=== PATIENT | female | born 1960 | race Hispanic/Latino ===

== ENCOUNTER 2017-04-02 14:07 | Emergency (ER) | payer OTHER ==
[2017-04-02 14:16] VITALS: BMI 21.6
[2017-04-02 14:19] VITALS: BP 150/81; PULSE 56; RESP 16; TEMP 98.2; O2SAT 99
--- NOTE | 2017-04-02 14:31 | ED PDOC ---
Arrival/HPI - General Historian: Patient - General Chief Complaint: Back Pain Time Seen by Provider: 04/02/17 14:26 - History of Present Illness Narrative History of Present Illness (Text): 04/02/17 14:27 56 y/o female, pmh including htn/hypothyroidism/gerd/chronic sciatica/lumbar disc herniation with unknown level, allergic to lidocaine, c/o sciatica pain x 1 day with no fall or trauma. Pt. stated that she is at work today, been standing all day, been having the lower back pain on the right side to the rt. lower extremities, no urinary symptoms, no headache or night sweat, no dizziness , no palpitation, no chest pain or shortness of breath. (Gt Torrez) Past Medical History - Provider Review Nursing Documentation Reviewed: Yes - Infectious Disease Hx of Infectious Diseases: None - Tetanus Immunization Tetanus Immunization: Up to Date - Cardiac Hx Cardiac Disorders: Yes Hx Angina: Yes Hx Hypertension: Yes Other/Comment: HAS AN OCCASIONAL LEAKY HEART VALVE - Pulmonary Hx Respiratory Disorders: No - Neurological Hx Neurological Disorder: No - HEENT Hx HEENT Disorder: No - Renal Hx Renal Disorder: No - Endocrine/Metabolic Hx Endocrine Disorders: Yes Hx Hypothyroidism: Yes - Hematological/Oncological Hx Blood Disorders: No - Integumentary Hx Dermatological Disorder: No - Musculoskeletal/Rheumatological Hx Musculoskeletal Disorders: Yes Hx Back Pain: Yes - Gastrointestinal Hx Gastrointestinal Disorders: Yes Hx Gastroesophageal Reflux: Yes Other/Comment: HAS HEMANGIOMA OF THE LIVER - Genitourinary/Gynecological Hx Genitourinary Disorders: No - Psychiatric Hx Psychophysiologic Disorder: No Hx Substance Use: No - Surgical History Hx Arthroscopy: Yes (X 2 TO RIGHT KNEE) - Anesthesia Hx Anesthesia: Yes Hx Anesthesia Reactions: No Hx Malignant Hyperthermia: No - Suicidal Assessment Feels Threatened In Home Enviroment: No Family/Social History - Physician Review Nursing Documentation Reviewed: Yes Family/Social History: Unknown Family HX Smoking Status: Never Smoked Hx Alcohol Use: No Hx Substance Use: No Hx Substance Use Treatment: No Allergies/Home Meds Allergies/Adverse Reactions: Allergies lidocaine Allergy (Verified 04/02/17 14:16) ANAPHYLAXIS Home Medications: Home Meds Medication Instructions Recorded Confirmed Levothyroxine Sodium 50 mcg PO DAILY 10/23/12 04/02/17 [Levothyroxine] Amlodipine Besylate [Norvasc] 10 mg PO DAILY 12/21/15 04/02/17 Cetirizine HCl [Zyrtec] 10 mg PO DAILY PRN 02/22/16 04/02/17 Omeprazole Magnesium [Prilosec Otc] 40 mg PO DAILY PRN 02/22/16 04/02/17 Lactobacillus Acidophilus 1 cap PO BID 04/02/17 04/02/17 [Acidophilus] Naproxen [Naproxen] 500 mg PO BID 04/02/17 04/02/17 Review of Systems - Review of Systems Constitutional: absent: Fatigue, Fevers Eyes: absent: Vision Changes ENT: absent: Hearing Changes Respiratory: absent: Cough, Sputum Cardiovascular: absent: Chest Pain Gastrointestinal: absent: Abdominal Pain, Nausea, Vomiting Genitourinary Female: absent: Dysuria, Frequency Musculoskeletal: Back Pain, Myalgias. absent: Arthralgias, Neck Pain, Joint Swelling Psychiatric: absent: Anxiety, Depression Physical Exam Vital Signs Reviewed: Yes Temperature: Afebrile Blood Pressure: Normal Pulse: Regular Respiratory Rate: Normal Appearance: Positive for: Well-Appearing, Non-Toxic, Uncomfortable Pain Distress: Severe Mental Status: Positive for: Alert and Oriented X 3 - Systems Exam Head: Present: Atraumatic, Normocephalic Pupils: Present: PERRL Extroacular Muscles: Present: EOMI Conjunctiva: Present: Normal Mouth: Present: Moist Mucous Membranes Neck: Present: Normal Range of Motion Respiratory/Chest: Present: Clear to Auscultation, Good Air Exchange. No: Respiratory Distress, Accessory Muscle Use Cardiovascular: Present: Regular Rate and Rhythm, Normal S1, S2. No: Murmurs Abdomen: Present: Normal Bowel Sounds. No: Tenderness, Distention, Peritoneal Signs Back: Present: Paraspinal Tenderness, Other (LS spine: +ttp and spasm noted on the rt. paraspinal muscle region, no midline tenderness or step off, no rash, no cva tenderness, FROM without limitation, sensation intact, motor 5/5, no saddling gait. ). No: CVA Tenderness, Midline Tenderness, Pain with Leg Raise, Decubitus Ulcer Upper Extremity: Present: Normal Inspection. No: Cyanosis, Edema Lower Extremity: Present: Normal Inspection. No: Edema Neurological: Present: GCS=15, Speech Normal, Motor Func Grossly Intact, Gait Normal, Memory Normal Skin: Present: Warm, Dry, Normal Color. No: Rashes Psychiatric: Present: Alert, Oriented x 3, Normal Insight, Normal Concentration Medical Decision Making - Lab Interpretations I have reviewed the lab results: Yes Interpretation: No clinic. lab abnormalty ED Course and Treatment: 04/02/17 14:33 -toradol/flexeril/percocet -UA show no UTI -Discharge home with cane, percocet for severe pain or just take tylenol and flexeril, avoid taking flexeril and percocet together at the same time as it will causes drowsiness, heat compression, follow up with your own pmd within 2 days, avoid strenuous exercise or activity, return to the ER for any new or worsening signs or symptoms. 04/02/17 15:09 -Pt. feels better with the medication given in the ER. (Gt Torrez) I was available for consultation during PA evaluation. The chart was reviewed by me, and I agree with disposition. The documented history was done by the physician jewel stripper. The documented physical exam was done by the physician jewel stripper. The documented procedures were done by the physician jewel stripper. ( Zeyad Rueda) - Lab Interpretations Lab Results: Lab Results 04/02/17 14:45: Urine Color Yellow, Urine Appearance Clear, Urine pH 6.0, Ur Specific [place] 1.015, Urine Protein Negative, Urine Glucose (UA) Negative, Urine Ketones Negative, Urine Blood Negative, Urine Nitrate Negative, Urine Bilirubin Negative, Urine Urobilinogen 0.2, Ur Leukocyte Esterase Negative - Medication Orders Current Medication Orders: Discontinued Medications Cyclobenzaprine HCl (Flexeril) 10 mg PO STAT STA Stop: 04/02/17 14:32 Last Admin: 04/02/17 14:54 Dose: 10 mg Home Med (*Refrigerator Open) Confirm Administered Dose 1 unit XX .STK-MED ONE Stop: 04/02/17 17:24 Ketorolac Tromethamine (Toradol) 60 mg IM STAT STA Stop: 04/02/17 14:32 Last Admin: 04/02/17 14:54 Dose: 60 mg Oxycodone/Acetaminophen (Percocet 5/325 Mg Tab) 1 tab PO STAT STA Stop: 04/02/17 14:34 Last Admin: 04/02/17 14:53 Dose: 1 tab - PA / STEM ASSEMBLER / Resident Statement MD/DO has reviewed & agrees with the documentation as recorded. Disposition/Present on Arrival - Present on Arrival Any Indicators Present on Arrival: No History of DVT/PE: No History of Uncontrolled Diabetes: No Urinary Catheter: No History of Decub. Ulcer: No History Surgical Site Infection Following: None - Disposition Have Diagnosis and Disposition been Completed?: Yes Disposition Time: 14:35 Patient Plan: Discharge - Disposition Diagnosis: Sciatica, Back spasm Disposition: HOME/ ROUTINE Condition: IMPROVED Additional Instructions: Discharge home with cane, percocet for severe pain or just take tylenol and flexeril, avoid taking flexeril and percocet together at the same time as it will causes drowsiness, heat compression, follow up with your own pmd within 2 days, avoid strenuous exercise or activity, return to the ER for any new or worsening signs or symptoms. Prescriptions: Cyclobenzaprine [Cyclobenzaprine HCl] 10 mg PO TID #21 tab oxyCODONE/Acetaminophen [Percocet 5/325 mg Tab] 1 tab PO TID PRN #6 tab PRN Reason: Other Referrals: Aaron Jacob MD [Primary Care Provider] - Follow up with primary Forms: [employer] (Macedonian), WORK NOTE
[2017-04-02] MEDS ORDERED: Oxycodone/Acetaminophen 5/325 mg Tab PO STA (14:33)
[2017-04-02 14:58] LABS: URINE BILIRUBIN NEGATIVE (NEGATIVE); URINE BLOOD NEGATIVE (NEGATIVE); URINE GLUCOSE (UA) NEGATIVE (NEGATIVE); URINE KETONE NEGATIVE (NEGATIVE); URINE LEUKOCYTE ESTERASE NEGATIVE Leu/uL (NEGATIVE); URINE PROTEIN NEGATIVE mg/dL (<30 mg/dL); URINE UROBILINOGEN 0.2 E.U./dL (<1 E.U./dL)
[2017-04-02 15:01] LABS: URINE APPEARANCE CLEAR (CLEAR); URINE COLOR YELLOW (YELLOW)
== END 2017-04-02 16:04 | disposition home or self-care (01) ==
LOC: ED 14:07
DX: M54.30 Sciatica, unspecified side (principal); M62.830 Muscle spasm of back; I10 Essential (primary) hypertension; E03.9 Hypothyroidism, unspecified
CPT/HCPCS: 81003; 96372; 99283; J1885

== ENCOUNTER 2017-05-23 15:02 | Emergency (ER) | payer OTHER ==
[2017-05-23 15:02] VITALS: BMI 21.6
[2017-05-23 15:12] VITALS: TEMP 98
[2017-05-23] MEDS ORDERED: Sodium Chloride 0.9% 1,000 ML IV STA (15:33)
--- NOTE | 2017-05-23 15:38 | ED PDOC ---
Arrival/HPI - General Chief Complaint: Abdominal Pain Time Seen by Provider: 05/23/17 15:03 Historian: Patient - History of Present Illness Time/Duration: Other (Chronic) Symptom Onset: Gradual Symptom Course: Worsening Severity Level: Severe Activities at Onset: Rest Associated Symptoms (Text): 05/23/17 15:35 Patient complains of chronic generalized abdominal pain for many many years. It has become worse over the last week. It has been accompanied by nausea vomiting and diarrhea. Patient has had EGD colonoscopy CT scan and ultrasound which have been unrevealing. She is scheduled for a colonoscopy the week after next. She was seen by the crossing flagman last week. She states she can no longer take the pain. No fever or chills. No trauma or exposure. No genitourinary symptoms. No radiation of the pain. No chest pain palpitations or dyspnea. She appears to be in no distress. Past Medical History - Infectious Disease Hx of Infectious Diseases: None - Tetanus Immunization Tetanus Immunization: Up to Date - Reproductive Menopause: Yes - Cardiac Hx Cardiac Disorders: Yes Hx Angina: Yes Hx Hypertension: Yes Other/Comment: HAS AN OCCASIONAL LEAKY HEART VALVE - Pulmonary Hx Respiratory Disorders: No - Neurological Hx Neurological Disorder: No - HEENT Hx HEENT Disorder: No - Renal Hx Renal Disorder: No - Endocrine/Metabolic Hx Endocrine Disorders: Yes Hx Hypothyroidism: Yes - Hematological/Oncological Hx Blood Disorders: No - Integumentary Hx Dermatological Disorder: No - Musculoskeletal/Rheumatological Hx Musculoskeletal Disorders: Yes Hx Back Pain: Yes - Gastrointestinal Hx Gastrointestinal Disorders: Yes Hx Gastroesophageal Reflux: Yes Other/Comment: HAS HEMANGIOMA OF THE LIVER - Genitourinary/Gynecological Hx Genitourinary Disorders: No - Psychiatric Hx Psychophysiologic Disorder: No Hx Substance Use: No - Surgical History Hx Arthroscopy: Yes (X 2 TO RIGHT KNEE) - Anesthesia Hx Anesthesia: Yes Hx Anesthesia Reactions: No Hx Malignant Hyperthermia: No - Suicidal Assessment Feels Threatened In Home Enviroment: No Family/Social History - Physician Review Nursing Documentation Reviewed: Yes Family/Social History: Unknown Family HX Smoking Status: Never Smoked Hx Alcohol Use: No Hx Substance Use: No Hx Substance Use Treatment: No Allergies/Home Meds Allergies/Adverse Reactions: Allergies lidocaine Allergy (Verified 05/23/17 15:12) ANAPHYLAXIS Home Medications: Home Meds Medication Instructions Recorded Confirmed Levothyroxine Sodium 50 mcg PO DAILY 10/23/12 05/23/17 [Levothyroxine] Amlodipine Besylate [Norvasc] 10 mg PO DAILY 12/21/15 05/23/17 Cetirizine HCl [Zyrtec] 10 mg PO DAILY PRN 02/22/16 05/23/17 Omeprazole Magnesium [Prilosec Otc] 40 mg PO DAILY PRN 02/22/16 05/23/17 Lactobacillus Acidophilus 1 cap PO BID 04/02/17 05/23/17 [Acidophilus] Review of Systems - Physician Review All systems were reviewed & negative as marked: Yes - Review of Systems Constitutional: Fatigue, Other (Weight loss of 15 pounds over 18 months.) Respiratory: Normal Cardiovascular: Normal Gastrointestinal: Abdominal Pain, Diarrhea, Nausea, Vomiting, Anorexia Genitourinary Female: absent: Dysuria, Frequency, Hematuria Neurological: absent: Headache, Dizziness, Focal Weakness Physical Exam Vital Signs Temp Pulse Resp BP Pulse Ox 05/23/17 15:08 98 F 63 18 148/80 99 Temperature: Afebrile Blood Pressure: Normal Pulse: Regular Respiratory Rate: Normal Appearance: Positive for: Well-Appearing, Non-Toxic, Comfortable Pain Distress: Mild Mental Status: Positive for: Alert and Oriented X 3 - Systems Exam Head: Present: Atraumatic, Normocephalic Pupils: Present: PERRL Extroacular Muscles: Present: EOMI Conjunctiva: Present: Normal Mouth: Present: Moist Mucous Membranes Pharnyx: No: ERYTHEMA, EXUDATE, TONSILS ENLARGED Neck: Present: Normal Range of Motion Respiratory/Chest: Present: Clear to Auscultation, Good Air Exchange. No: Respiratory Distress, Accessory Muscle Use Cardiovascular: Present: Regular Rate and Rhythm, Normal S1, S2. No: Murmurs Abdomen: Present: Tenderness (Mild generalized abdominal tenderness with no guarding and no rebound), Normal Bowel Sounds. No: Distention, Peritoneal Signs , Rebound, Guarding Upper Extremity: Present: Normal Inspection. No: Cyanosis, Edema Lower Extremity: Present: Normal Inspection. No: Edema Neurological: Present: GCS=15, CN II-XII Intact, Speech Normal, Motor Func Grossly Intact Skin: Present: Warm, Dry, Normal Color. No: Rashes Psychiatric: Present: Alert, Oriented x 3, Normal Insight, Normal Concentration Medical Decision Making ED Course and Treatment: 05/23/17 15:42 EKG shows sinus bradycardia rate approximately [address] or T-wave changes and poor R-wave progression 05/23/17 17:03 Symptoms have improved. - Lab Interpretations Lab Results: 05/23/17 15:23 05/23/17 15:23 Lab Results 05/23/17 15:23: Sodium 141, Potassium 3.9, Chloride 103, Carbon Dioxide 29, Anion Gap 13, BUN 12, Creatinine 0.6, Est GFR ( Amer) > 60, Est GFR (Non- Af Amer) > 60, Random Glucose 89, Calcium 9.3, Total Bilirubin 0.5, AST 30, ALT 24, Alkaline Phosphatase 84, Lactate Dehydrogenase 518, Total Creatine Kinase 92 , Troponin I < 0.01, Total Protein 8.0, Albumin 4.6, Globulin 3.4, Albumin/ Globulin Ratio 1.4, Lipase 109 05/23/17 15:23: Urine Color Yellow, Urine Appearance Clear, Urine pH 6.0, Ur Specific [place] >= 1.030, Urine Protein Negative, Urine Glucose (UA) Negative, Urine Ketones Negative, Urine Blood Trace-lysed H, Urine Nitrate Negative, Urine Bilirubin Negative, Urine Urobilinogen 0.2, Ur Leukocyte Esterase Negative , Urine RBC 1 - 3, Urine WBC 0 - 2, Ur Epithelial Cells 0 - 2, Urine Bacteria Small 05/23/17 15:23: WBC 5.3 D, RBC 4.05, Hgb 13.6, Hct 40.9, MCV 101.0, MCH 33.6, MCHC 33.3, RDW 12.4, Plt Count 173, MPV 9.9, Gran % 57.9, Lymph % (Auto) 27.3, Hodgeman % (Auto) 13.5 H, Eos % (Auto) 1.1 L, Baso % (Auto) 0.2, Gran # 3.05, Lymph # 1.4, Hodgeman # 0.7 H, Eos # 0.1, Baso # 0.01 - RAD Interpretation Radiology Orders: 05/23/17 15:33 ABD & PELVIS W/O PO OR IV CONT [CT] Stat CT scan of the abdomen and pelvis is read by the radiologist shows no acute findings. Systems Lead: Radiologist - Medication Orders Current Medication Orders: Sodium Chloride (Sodium Chloride 0.9%) 1,000 mls @ 100 mls/hr IV .Q10H STA Stop: 05/24/17 01:32 Last Admin: 05/23/17 15:43 Dose: 100 mls/hr Discontinued Medications Ketorolac Tromethamine (Toradol) 15 mg IVP STAT STA Stop: 05/23/17 15:34 Last Admin: 05/23/17 15:43 Dose: 15 mg Ondansetron HCl (Zofran Inj) 4 mg IVP STAT STA Stop: 05/23/17 15:34 Last Admin: 05/23/17 15:43 Dose: 4 mg Disposition/Present on Arrival - Present on Arrival Any Indicators Present on Arrival: No History of DVT/PE: No History of Uncontrolled Diabetes: No Urinary Catheter: No History of Decub. Ulcer: No History Surgical Site Infection Following: None - Disposition Have Diagnosis and Disposition been Completed?: Yes Diagnosis: Abdominal pain Disposition: HOME/ ROUTINE Disposition Time: 17:03 Patient Plan: Discharge Condition: GOOD Discharge Instructions (ExitCare): Abdominal Pain (ED) Additional Instructions: Follow-up with PMD and crossing flagman. Follow up in ER as needed. Prescriptions: Ondansetron [Zofran Odt] 4 mg SL Q6 #20 odt Referrals: Aaron Jacob MD [Primary Care Provider] - Follow up with primary
[2017-05-23 15:54] LABS: BASO # 0.01 K/mm3 (0.0-2.0); BASO % 0.2 % (0.0-3.0); EOS # 0.1 (0.0-0.7); EOS % 1.1 % (1.5-5.0); GRAN # 3.05 (1.4-6.5); GRAN % 57.9 % (50.0-68.0); HEMOGLOBIN 13.6 gm/dL (12.0-16.0); LYMPH # 1.4 (1.2-3.4); LYMPH % 27.3 % (22.0-35.0); MEAN CORPUSCULAR HEMOGLOBIN 33.6 pg (25.0-35.0); MEAN CORPUSCULAR HGB CONC 33.3 g/dl (31.0-37.0); MEAN PLATELET VOLUME 9.9 fl (7.0-11.0); MONO # 0.7 (0.1-0.6); MONO % 13.5 % (1.0-6.0); PLATELET COUNT 173 10^3/uL (120.0-450.0); RBC 4.05 10^6/uL (3.5-6.1); RED CELL DISTRIBUTION WIDTH 12.4 % (11.5-14.5); URINE BILIRUBIN NEGATIVE (NEGATIVE); URINE BLOOD TRACE-LYSED (NEGATIVE); URINE GLUCOSE (UA) NEGATIVE (NEGATIVE); URINE LEUKOCYTE ESTERASE NEGATIVE Leu/uL (NEGATIVE); URINE NITRATE NEGATIVE (NEGATIVE); URINE PROTEIN NEGATIVE mg/dL (<30 mg/dL); URINE UROBILINOGEN 0.2 E.U./dL (<1 E.U./dL); WHITE BLOOD COUNT 5.3 10^3/ul (4.5-11.0)
[2017-05-23 16:01] LABS: ALB/GLOB RATIO 1.4 (1.1-1.8); ALBUMIN 4.6 g/dL (3.0-4.8); ALT/SGPT 24 U/L (7-56); AST/SGOT 30 U/L (15-39); BLOOD UREA NITROGEN 12 mg/dL (7-21); CALCIUM 9.3 mg/dL (8.4-10.5); GFR AFRICAN-AMERICAN > 60; GFR NON-AFRICAN AMERICAN > 60; LIPASE 109 U/L (23-300)
[2017-05-23 16:07] LABS: URINE APPEARANCE CLEAR (CLEAR); URINE COLOR YELLOW (YELLOW)
[2017-05-23 16:28] LABS: TROPONIN I < 0.01 ng/mL
[2017-05-23 16:35] LABS: URINE BACTERIA SMALL (NEG); URINE EPITHELIAL CELLS 0 - 2 /hpf (0-5); URINE WBC 0 - 2 /hpf (0-6)
--- NOTE | 2017-05-23 16:51 | CT ---
PROCEDURE: CT Abdomen and Pelvis without intravenous contrast HISTORY: ap COMPARISON: 05/09/2015 TECHNIQUE: Unenhanced study. Neither oral nor intravenous contrast administered. Sensitivity and specificity for acute inflammatory processes limited by the absence of oral and intravenous contrast. Radiation dose: Total exam DLP = 266.70 mGy-cm. This CT exam was performed using one or more of the following dose reduction techniques: Automated exposure control, adjustment of the mA and/or kV according to patient size, and/or use of iterative reconstruction technique. FINDINGS: LOWER THORAX: Unremarkable. LIVER: Low-attenuation max in the dome of the liver 2.4 x 3 cm. These are nonspecific findings although was seen on the prior contrast-enhanced study 05/09/2015. No additional hepatic abnormalities. GALLBLADDER AND BILE DUCTS: Unremarkable. PANCREAS: Unremarkable. No gross lesion or ductal dilatation. SPLEEN: Unremarkable. ADRENALS: Unremarkable. No mass. KIDNEYS AND URETERS: Unremarkable. No hydronephrosis. No solid mass. VASCULATURE: Unremarkable. No aortic aneurysm. BOWEL: Prominent terminal ileum, ileocecal valve region. The findings are nonspecific may represent mild ileitis. No evidence of mechanical bowel obstruction. Remainder of the small bowel and colon within normal limits. APPENDIX: Unremarkable. Normal appendix. PERITONEUM: Unremarkable. No free fluid. No free air. LYMPH NODES: Unremarkable. No enlarged lymph nodes. BLADDER: Unremarkable. REPRODUCTIVE: Unremarkable. BONES: No acute fracture. OTHER FINDINGS: None. IMPRESSION: Findings suggest a mild ileitis. Normal appendix common no evidence of acute appendicitis. Additional benign and/or incidental findings described above. Is
[2017-05-23 17:38] VITALS: BP 142/72; PULSE 65; RESP 16; O2SAT 100
--- NOTE | 2017-05-24 11:30 | CARD ---
APPROVED REPORT EKG Measurement Heart [id number] <Conclusion> Sinus bradycardia Minimal voltage criteria for LVH, may be normal variant Borderline ECG
== END 2017-05-23 17:38 | disposition home or self-care (01) ==
LOC: ED 15:02
DX: R10.9 Unspecified abdominal pain (principal); I10 Essential (primary) hypertension
CPT/HCPCS: 74176; 80053; 81001; 82550; 83615; 83690; 84484; 85025; 93005; 96374; 96375; 99284; J1885; J2405; J7040

== ENCOUNTER 2017-08-18 07:39 | Emergency (ER) | payer OTHER ==
[2017-08-18 07:40] VITALS: BMI 21.6
[2017-08-18 07:51] VITALS: RESP 16; TEMP 97.7; O2SAT 98
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
[2017-08-18 09:01] VITALS: BP 132/65; PULSE 63
== END 2017-08-18 08:45 | disposition home or self-care (01) ==
LOC: ED 07:39
DX: S39.012A Strain of muscle, fascia and tendon of lower back, initial encounter (principal); V73.6XXA Passenger on bus injured in collision with car, pick-up truck or van in traffic accident, initial encounter; Y92.410 Unspecified street and highway as the place of occurrence of the external cause
CPT/HCPCS: 96372; 99285; J1885

== ENCOUNTER 2017-10-02 10:25 | Emergency (ER) | payer OTHER ==
[2017-10-02 10:26] VITALS: BMI 21.6
--- NOTE | 2017-10-02 10:30 | ED PDOC ---
Arrival/HPI - General Time Seen by Provider: 10/02/17 10:28 Historian: Patient - History of Present Illness Narrative History of Present Illness (Text): 10/02/17 10:29 57 y/o female, pmh including htn/irritable bowel syndrome/hypothyroidism, allergic to lidocaine, c/o headache x 1 hour. Pt. 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 Pt. has no chest pain or shortness of breath, no night sweat, no dizziness but only has headache now, no rash, no fatigue or weight loss, no other medical or psychological complaints. Past Medical History - Provider Review Nursing Documentation Reviewed: Yes - Infectious Disease Hx of Infectious Diseases: None - Tetanus Immunization Tetanus Immunization: Up to Date - Cardiac Hx Cardiac Disorders: Yes Hx Heart Murmur: Yes Other/Comment: LEAKY HEART VALVE - Pulmonary Hx Respiratory Disorders: No - Neurological Hx Neurological Disorder: Yes Hx Migraine: Yes - HEENT Hx HEENT Disorder: No - Renal Hx Renal Disorder: No - Endocrine/Metabolic Hx Endocrine Disorders: Yes Hx Hypothyroidism: Yes - Hematological/Oncological Hx Blood Disorders: No - Integumentary Hx Dermatological Disorder: No - Musculoskeletal/Rheumatological Hx Musculoskeletal Disorders: Yes Hx Back Pain: Yes Hx Falls: Yes Other/Comment: RIGHT KNEE REPAIR X2 POST FALLS - Gastrointestinal Hx Gastrointestinal Disorders: Yes Hx Gastritis: Yes Hx Gastroesophageal Reflux: Yes Hx Irritable Bowel: Yes Other/Comment: C DIFF COLITIS - Genitourinary/Gynecological Hx Genitourinary Disorders: No - Psychiatric Hx Psychophysiologic Disorder: No Hx Substance Use: No - Surgical History Hx Arthroscopy: Yes (RIGHT KNEE) - Anesthesia Hx Anesthesia: Yes Hx Anesthesia Reactions: Yes (NAUSEA) Hx Malignant Hyperthermia: No - Suicidal Assessment Feels Threatened In Home Enviroment: No Family/Social History - Physician Review Nursing Documentation Reviewed: Yes Family/Social History: Unknown Family HX Smoking Status: Never Smoked Hx Alcohol Use: No Hx Substance Use: No Hx Substance Use Treatment: No Allergies/Home Meds Allergies/Adverse Reactions: Allergies lidocaine Allergy (Verified 10/02/17 10:43) ANAPHYLAXIS Home Medications: Home Meds Medication Instructions Recorded Confirmed Levothyroxine Sodium 50 mcg PO DAILY 10/23/12 10/02/17 [Levothyroxine] Amlodipine Besylate [Norvasc] 2.5 mg PO DAILY 12/21/15 10/02/17 Omeprazole Magnesium [Prilosec Otc] 40 mg PO DAILY PRN 02/22/16 10/02/17 Lactobacillus Acidophilus 1 cap PO BID 04/02/17 10/02/17 [Acidophilus] Review of Systems - Review of Systems Constitutional: absent: Fatigue, Fevers Eyes: absent: Vision Changes ENT: absent: Hearing Changes Respiratory: absent: SOB, Cough Cardiovascular: absent: Chest Pain Gastrointestinal: absent: Abdominal Pain, Nausea, Vomiting Musculoskeletal: absent: Arthralgias, Back Pain, Neck Pain Skin: absent: Rash, Pruritis, Skin Lesions Neurological: Headache. absent: Dizziness, Focal Weakness, Gait Changes, Speech Changes, Facial Droop, Disequilibrium Psychiatric: absent: Anxiety, Depression Physical Exam Vital Signs Reviewed: Yes Vital Signs Temp Pulse Resp BP Pulse Ox 10/02/17 12:15 102 H 99 10/02/17 11:55 98 F 67 17 137/67 97 10/02/17 11:09 98.0 F 66 18 177/93 H 98 10/02/17 10:35 98 F 66 20 177/93 H 100 Temperature: Afebrile Blood Pressure: Hypertensive Pulse: Regular Respiratory Rate: Normal Appearance: Positive for: Well-Appearing, Non-Toxic, Comfortable Pain Distress: Moderate Mental Status: Positive for: Alert and Oriented X 3 - Systems Exam Head: Present: Atraumatic, Normocephalic, Other (no temporal artery tenderness) . No: Tenderness, Contusion, Swelling, Ecchymosis, Abrasion, Laceration Pupils: Present: PERRL Extroacular Muscles: Present: EOMI Conjunctiva: Present: Normal Ears: Present: NORMAL TM, Normal Canal. No: Erythema Mouth: Present: Moist Mucous Membranes Nose (External): Present: Atraumatic. No: Abrasion, Contusion, Laceration Nose (Internal): Present: Normal Inspection, No Active Bleeding. No: Rhinorrhea , Septal Hematoma, Epistaxis Neck: Present: Normal Range of Motion, Trachea Midline. No: MIDLINE TENDERNESS , Paraspinal Tenderness, Lymphadenopathy Respiratory/Chest: Present: Clear to Auscultation, Good Air Exchange. No: Respiratory Distress, Accessory Muscle Use, Wheezes, Retracting, Rhonchi Cardiovascular: Present: Regular Rate and Rhythm, Normal S1, S2. No: Murmurs Abdomen: Present: Normal Bowel Sounds. No: Tenderness, Distention, Peritoneal Signs, Rebound, Guarding Back: Present: Normal Inspection. No: CVA Tenderness, Midline Tenderness Upper Extremity: Present: Normal Inspection, Normal ROM, Neurovascularly Intact. No: Cyanosis, Edema, Deformity Lower Extremity: Present: Normal Inspection, Normal ROM, Neurovascularly Intact , Capillary Refill < 2 s. No: Edema, Deformity Neurological: Present: GCS=15, CN II-XII Intact, Speech Normal, Motor Func Grossly Intact, Memory Normal, Other (no drift, negative rhomberg) Skin: Present: Warm, Dry, Normal Color. No: Rashes Psychiatric: Present: Alert, Oriented x 3, Normal Insight, Normal Concentration Medical Decision Making ED Course and Treatment: 10/02/17 10:44 -labs/ua -CT head -IVF/tylenol -NIHSS is 0 -Observe and reassess 10/02/17 12:37 -EKG: Sinus Bradycardia @ 59 BPM with LVH changes (chronic), no ST elevation or depression, no T wave inversion, compared with previous ekg. -CT Head show no acute findings -Chest xray show no active disease -UA show no UTI -Headache resolved with the medication given with the BP decreased. Pt. is neurologically intact. -I have long discussion with the patient that she should have echocardiogram as outpatient and stop all gym or exercise as there is LVH changes to ensure the EF within normal limit. -I discussed the case/labs/radiology results with the patient and DR. Beltran, all agreed on the diagnosis/treatment and discharge plan. -Discharge home with tylenol, bed rest, avoid gym and exercise until you are clear by your own pmd and pipe buffer as you will need echocardiogram follow up , return to the ER for any new or worsening signs or symptoms. - Lab Interpretations Lab Results: 10/02/17 11:40 10/02/17 11:40 Lab Results 10/02/17 11:50: Urine Color Yellow, Urine Appearance Clear, Urine pH 6.0, Ur Specific [place] <= 1.005, Urine Protein Negative, Urine Glucose (UA) Negative, Urine Ketones Negative, Urine Blood Negative, Urine Nitrate Negative, Urine Bilirubin Negative, Urine Urobilinogen 0.2, Ur Leukocyte Esterase Negative 10/02/17 11:40: Sodium 141, Potassium 4.2, Chloride 106, Carbon Dioxide 28, Anion Gap 11, BUN 13, Creatinine 0.6 L, Est GFR ( Amer) > 60, Est GFR ( Non-Af Amer) > 60, Random Glucose 93, Calcium 9.3, Magnesium 2.0, Total Bilirubin 0.7, AST 31, ALT 40, Alkaline Phosphatase 81, Total Protein 7.1, Albumin 4.2, Globulin 2.9, Albumin/Globulin Ratio 1.4 10/02/17 11:40: WBC 5.0 D, RBC 3.69, Hgb 12.5, Hct 37.1, MCV 100.5, MCH 33.9, MCHC 33.7, RDW 12.4, Plt Count 157, MPV 9.9, Gran % 59.2, Lymph % (Auto) 29.0, [place] % (Auto) 9.8 H, Eos % (Auto) 1.6, Baso % (Auto) 0.4, Gran # 2.96, Lymph # 1.5, [place] # 0.5, Eos # 0.1, Baso # 0.02 - RAD Interpretation Radiology Orders: 10/02/17 10:45 HEAD W/O CONTRAST [CT] Stat CHEST PORTABLE [RAD] Stat CT head: PROCEDURE: CT HEAD WITHOUT CONTRAST. HISTORY: headache with htn COMPARISON: None available. TECHNIQUE: Axial computed tomography images were obtained through the head/brain without intravenous contrast. Radiation dose: Total exam DLP = 792.29 mGy-cm. This CT exam was performed using one or more of the following dose reduction techniques: Automated exposure control, adjustment of the mA and/or kV according to patient size, and/or use of iterative reconstruction technique. FINDINGS: HEMORRHAGE: No intracranial hemorrhage. BRAIN: No mass effect or edema. No atrophy or chronic microvascular ischemic changes. VENTRICLES: Unremarkable. No hydrocephalus. CALVARIUM: Unremarkable. PARANASAL SINUSES: Unremarkable as visualized. No significant inflammatory changes. MASTOID AIR CELLS: Unremarkable as visualized. No inflammatory changes. OTHER FINDINGS: None. IMPRESSION: Normal CT of the Head. Chest xray: HISTORY: medical clearance COMPARISON: Comparison is made to 05/09/2015 FINDINGS: LUNGS: No evidence of new infiltrate or consolidation in the lungs. Hyperinflation of the lungs is again noted. Peripheral small opacities at the lung apices likely represent pleural thickening. PLEURA: No significant pleural effusion identified, no pneumothorax apparent. CARDIOVASCULAR: Normal. OSSEOUS STRUCTURES: No significant abnormalities. VISUALIZED UPPER ABDOMEN: Normal. OTHER FINDINGS: None. IMPRESSION: No active disease. Service Representative: Radiologist - EKG Interpretation EKG Interpretation (Text): 10/02/17 11:17 Sinus Bradycardia @ 59 BPM with LVH changes (chronic), no ST elevation or depression, no T wave inversion, compared with previous ekg. Interpreted by ED Physician: Yes Type: 12 lead EKG Comparison: Com.w/previous EKG - Medication Orders Current Medication Orders: Discontinued Medications Acetaminophen (Tylenol 325mg Tab) 650 mg PO STAT STA Stop: 10/02/17 10:46 Last Admin: 10/02/17 11:29 Dose: 650 mg Sodium Chloride (Sodium Chloride 0.9%) 1,000 mls @ 999 mls/hr IV .Q1H1M STA Stop: 10/02/17 11:45 Last Admin: 10/02/17 11:30 Dose: 999 mls/hr eMAR Start Stop Document 10/02/17 11:30 GMI (Rec: 10/02/17 11:30 [place] [email or web address] [id number] Intravenous Solution Start Date 10/02/17 Start Time 11:30 Metoclopramide HCl (Reglan) 10 mg IVP STAT STA Stop: 10/02/17 10:46 Last Admin: 10/02/17 11:29 Dose: 10 mg IVP Administration Document 10/02/17 11:29 GMI (Rec: 10/02/17 11:29 [id number] Charges for Administration # of IVP Administrations 1 - PA / STATE WILDLIFE OFFICER / Resident Statement MD/DO has reviewed & agrees with the documentation as recorded. Disposition/Present on Arrival - Present on Arrival Any Indicators Present on Arrival: No History of DVT/PE: No History of Uncontrolled Diabetes: No Urinary Catheter: No History of Decub. Ulcer: No History Surgical Site Infection Following: None - Disposition Have Diagnosis and Disposition been Completed?: Yes Diagnosis: Headache, Abnormal ECG Disposition: HOME/ ROUTINE Disposition Time: 12:39 Patient Plan: Discharge Patient Problems: Current Active Problems Problem Status Onset Headache Acute Condition: IMPROVED Additional Instructions: -Discharge home with tylenol, bed rest, avoid gym and exercise until you are clear by your own pmd and pipe buffer as you will need echocardiogram follow up , return to the ER for any new or worsening signs or symptoms. Prescriptions: Acetaminophen [Tylenol 325mg tab] 2 tab PO QID #35 tab Referrals: Aaron Jacob MD [Primary Care Provider] - Follow up with primary Oemr Walsh MD [Staff Provider] - Follow up with primary Forms: WORK NOTE
[2017-10-02] MEDS ORDERED: Sodium Chloride 0.9% 1,000 ML IV STA (10:45)
[2017-10-02 11:56] VITALS: TEMP 98
[2017-10-02 11:56] LABS: BASO # 0.02 K/mm3 (0.0-2.0); BASO % 0.4 % (0.0-3.0); EOS # 0.1 (0.0-0.7); EOS % 1.6 % (1.5-5.0); GRAN # 2.96 (1.4-6.5); GRAN % 59.2 % (50.0-68.0); HEMATOCRIT 37.1 % (36.0-48.0); LYMPH # 1.5 (1.2-3.4); MEAN CELL VOLUME 100.5 fl (80.0-105.0); MEAN CORPUSCULAR HEMOGLOBIN 33.9 pg (25.0-35.0); MEAN CORPUSCULAR HGB CONC 33.7 g/dl (31.0-37.0); MEAN PLATELET VOLUME 9.9 fl (7.0-11.0); MONO # 0.5 (0.1-0.6); MONO % 9.8 % (1.0-6.0); RED CELL DISTRIBUTION WIDTH 12.4 % (11.5-14.5)
[2017-10-02 12:00] LABS: ALB/GLOB RATIO 1.4 (1.1-1.8); ALKALINE PHOSPHATASE 81 U/L (38-126); ALT/SGPT 40 U/L (7-56); AST/SGOT 31 U/L (14-36); BILIRUBIN,TOTAL 0.7 mg/dL (0.2-1.3); BLOOD UREA NITROGEN 13 mg/dL (7-21); CALCIUM 9.3 mg/dL (8.4-10.5); CARBON DIOXIDE 28 mmol/L (21-33); CHLORIDE 106 mmol/L (98-107); GFR AFRICAN-AMERICAN > 60; GLUCOSE,RANDOM 93 mg/dL (70-110); POTASSIUM 4.2 mmol/L (3.6-5.0); SODIUM 141 mmol/L (132-148); TOTAL PROTEIN 7.1 g/dL (5.8-8.3)
[2017-10-02 12:01] LABS: URINE BILIRUBIN NEGATIVE (NEGATIVE); URINE BLOOD NEGATIVE (NEGATIVE); URINE GLUCOSE (UA) NEGATIVE (NEGATIVE); URINE KETONE NEGATIVE (NEGATIVE); URINE LEUKOCYTE ESTERASE NEGATIVE Leu/uL (NEGATIVE); URINE PROTEIN NEGATIVE mg/dL (<30 mg/dL); URINE UROBILINOGEN 0.2 E.U./dL (<1 E.U./dL)
[2017-10-02 12:02] LABS: URINE APPEARANCE CLEAR (CLEAR); URINE COLOR YELLOW (YELLOW)
--- NOTE | 2017-10-02 12:11 | RAD ---
HISTORY: medical clearance COMPARISON: Comparison is made to 05/09/2015 FINDINGS: LUNGS: No evidence of new infiltrate or consolidation in the lungs. Hyperinflation of the lungs is again noted. Peripheral small opacities at the lung apices likely represent pleural thickening. PLEURA: No significant pleural effusion identified, no pneumothorax apparent. CARDIOVASCULAR: Normal. OSSEOUS STRUCTURES: No significant abnormalities. VISUALIZED UPPER ABDOMEN: Normal. OTHER FINDINGS: None. IMPRESSION: No active disease.
--- NOTE | 2017-10-02 12:16 | CT ---
PROCEDURE: CT HEAD WITHOUT CONTRAST. HISTORY: headache with htn COMPARISON: None available. TECHNIQUE: Axial computed tomography images were obtained through the head/brain without intravenous contrast. Radiation dose: Total exam DLP = 792.29 mGy-cm. This CT exam was performed using one or more of the following dose reduction techniques: Automated exposure control, adjustment of the mA and/or kV according to patient size, and/or use of iterative reconstruction technique. FINDINGS: HEMORRHAGE: No intracranial hemorrhage. BRAIN: No mass effect or edema. No atrophy or chronic microvascular ischemic changes. VENTRICLES: Unremarkable. No hydrocephalus. CALVARIUM: Unremarkable. PARANASAL SINUSES: Unremarkable as visualized. No significant inflammatory changes. MASTOID AIR CELLS: Unremarkable as visualized. No inflammatory changes. OTHER FINDINGS: None. IMPRESSION: Normal CT of the Head.
[2017-10-02 12:44] VITALS: BP 130/69; PULSE 69; RESP 18; O2SAT 99
--- NOTE | 2017-10-03 09:09 | CARD ---
APPROVED REPORT EKG Measurement Heart [id number] <Conclusion> Sinus bradycardia Voltage criteria for left ventricular hypertrophy Abnormal ECG
== END 2017-10-02 12:51 | disposition home or self-care (01) ==
LOC: ED 10:25
DX: R51 Headache (principal); R94.31 Abnormal electrocardiogram [ECG] [EKG]; I10 Essential (primary) hypertension; E03.9 Hypothyroidism, unspecified
CPT/HCPCS: 70450; 71010; 80053; 81003; 83735; 85025; 93005; 96361; 96374; 99285; J2765; J7040